=== PATIENT | female | born 1985 | race Caucasian/White ===

== ENCOUNTER 2017-04-09 22:41 | Emergency (ER) | payer SELFPAY ==
[2017-04-09 22:43] VITALS: BP 142/79; PULSE 76; RESP 16; TEMP 98.5; O2SAT 99
[2017-04-09] MEDS ORDERED: CELE100C PO (23:40)
[2017-04-09] MEDS ORDERED: PREV30CA11 PO (23:40)
[2017-04-09] MEDS ORDERED: AMBI5TAB PO (23:40)
[2017-04-09] MEDS ORDERED: VENL50TA PO (23:40)
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
== END 2017-04-10 07:01 | disposition left against medical advice (07) ==
LOC: NEPD 22:41
DX: T76.21XA Adult sexual abuse, suspected, initial encounter (principal)
CPT/HCPCS: 99281